=== PATIENT | male | born 1965 | race Caucasian/White ===

== ENCOUNTER 2020-05-16 16:09 | Inpatient (IN) | payer MEDICARE, MEDICAID, SELFPAY ==
[2020-05-16 16:13] VITALS: BP 142/87; PULSE 81; RESP 18; TEMP 36.5; O2SAT 97
--- NOTE | 2020-05-16 16:17 | XR_ITS ---
WS: [id number] Portable AP upright chest, 05/16/2020 Clinical Data: dyspnea/cough Comparison: Portable chest, 09/19/2018. Findings: No nodules, masses or effusions are seen. The heart is normal. The pulmonary vascularity is not increased. No pneumonia or pneumothorax is seen. There are increased interstitial markings espec ially in the upper lobes which are unchanged. The diaphragms are flattened. The aortic arch and desce nding aorta are tortuous. XR/XR chest 1V portable [id number] Impression: Hyperinflation and atherosclerosis.
[2020-05-16 17:01] LABS: Add Urine Microscopic? YES; Amphetamines Screen Urine Positive (Negative); Barbiturates Screen Urine Negative (Negative); Benzodiazepines Screen Urine Negative (Negative); Bilirubin Urine 1+ (NEGATIVE); Blood Urine 3+ (Negative); Cocaine Screen Urine Negative (Negative); Glucose Urine UA Trace (Normal); Ketones Urine Negative (Negative); Leukocyte Esterase Urine Negative (Negative); Nitrate Urine Negative (Negative); Opiate Screen Urine Negative (Negative); PCP Screen Urine Negative (Negative); Protein Urine Neg (Negative); THC Screen Urine Negative (Negative); Urine Appearance Clear (CLEAR); Urine Color Yellow (Yellow); Urobilinogen Urine 1 mg/dL (Negative); pH Urine 5 (5-7)
[2020-05-16 17:03] LABS: Bacteria Urine 3+; Mucus Urine TRACE; RBC Urine 50-80 /hpf (0-2); Squamous Epithelial Cell Urine 0-4 (0-5); WBC Urine 0-4 /hpf (0-5)
[2020-05-16 17:04] LABS: Add Urine Culture? Yes
--- NOTE | 2020-05-16 17:28 | W.ED.PSYCH ---
Documented by User: Anthony Laura DO 05/21/20 06:39 HPI - Psych General: Chief Complaint: Psychiatric Symptoms Stated Complaint: SI Time Seen by Provider: 05/16/20 16:10 History of Present Illness: HPI Narrative: 54-year-old male presents to the emergency room with complaints of suicidal ideation is been thinking of harming himself for the last week he is still thinking of harming himself would go home and take a large number of pills for an intentional overdose. He has been admitted to the psychiatric unit in the past. While is interviewing the patient he is noted to have a cough and I asked somebody states a low-grade fever the cough for the last several weeks if not a month. He has not previously been tested for COVID. He has a known history of COPD and is not particularly compliant with his treatment regiment. Review of Systems Const: Denies: fever(s), chills, body aches, change in appetite, fatigue or malaise ENMT: Denies: throat pain, ear or mastoid pain, nasal discharge or nasal congestion Card: Denies: chest pain, edema, dyspnea on exertion or orthopnea Resp: Reports: dyspnea and non-productive cough; Denies: productive cough GI: Denies: abdominal pain, nausea, vomiting, hematemesis, coffee ground emesis, diarrhea, constipation, bloating, hematochezia or melena : Denies: flank pain, dysuria, urinary frequency or urinary urgency Skin/Breast: Denies: rash or pruritus Physical Exam Const: COMMON NORMALS: no acute distress GENERAL APPEARANCE: cooperative and comfortable ORIENTATION/CONSCIOUSNESS: Yes awake, Yes oriented to person, Yes oriented to place and Yes oriented to time HENMT: COMMON NORMALS: normocephalic, atraumatic and hearing grossly normal bilaterally HEAD & SCALP: normocephalic and atraumatic Eye: COMMON NORMALS: Equal, round and reactive pupils present, EOMs intact bilaterally, conjunctivae normal and no scleral icterus CONJUNCTIVA: Yes conjunctivae normal PUPIL: Yes Equal, round and reactive pupils present Neck/C-Spine: COMMON NORMALS: full ROM, no lymphadenopathy, supple and no JVD Lymph: LYMPHATIC: no lymphadenopathy noted and no lymphedema noted Resp: COMMON NORMALS: normal respiratory effort, No retractions, No use of accessory muscles and clear to auscultation bilaterally AUSCULTATION: clear to auscultation bilaterally Cardio: COMMON NORMALS: no JVD, regular rate, regular rhythm and No murmurs present (Cardio) RATE: regular rate RHYTHM: regular rhythm GI: COMMON NORMALS: Soft to palpation and No hepatosplenomegaly present AUSCULTATION: Yes normoactive bowel sounds PALPATION: Yes Soft to palpation, No Tenderness to palpation present (GI), No Guarding due to palpation present (GI) and Yes No hepatosplenomegaly present Extremity: COMMON NORMALS: normal to inspection, capillary refill normal, no clubbing, cyanosis or edema, no calf tenderness and no pedal edema Neuro: SENSORIUM/ORIENTATION: Yes oriented to person, Yes oriented to place and Yes oriented to time Skin: COMMON NORMALS: no rashes or lesions noted GENERAL SKIN EXAM: no rashes or lesions noted MDM - Psych MDM Narrative: Medical decision making narrative: Screen for COVID in the emergency room using a rapid antigen test since he is currently symptomatic. Patient is will be 96 for suicidal ideation other medical clearance labs have been done. Care transferred to Dr. Garduno at change of shift Lab Data: Labs: Lab Results 05/16/20 05/16/20 05/16/20 Range/Units 16:34 16:34 17:26 WBC 7.8 (4.0-10.0) 10^3/ uL RBC 4.66 (4.1-5.3) 10^6/u L Hgb 14.0 (11.7-16.6) g/dL Hct 42.7 (42.0-52.0) % MCV 91.6 (80-94) fL MCH 30.0 (28.0-34.0) pg MCHC 32.8 (30.0-36.0) g/dL RDW 13.2 (12.1-15.1) % Plt Count 194 (130-400) 10^3/c mm MPV 10.2 (7.4-10.4) fL Neut % (Auto) 52.5 % Lymph % (Auto) 32.0 % Franklin % (Auto) 12.5 % Eos % (Auto) 1.8 % Baso % (Auto) 0.6 % Neut # (Auto) 4.07 (1.8-7.7) 10^3/u L Lymph # (Auto) 2.5 (0.8-4.8) 10^3/u L Franklin # (Auto) 1.0 H (0.2-0.9) 10^3/u L Eos # (Auto) 0.1 (0.0-0.8) 10^3/u L Baso # (Auto) 0.1 (0.0-0.1) 10^3/u L Nucleated RBC % (a uto) 0 % Nucleated RBCs # 0.0 /100WBC Sodium (136-145) mmol/L Potassium (3.5-5.1) mmol/L Chloride (98-107) mmol/L Carbon Dioxide (22-29) mmol/L Anion Gap (5-19) BUN (6-20) mg/dL Creatinine (0.7-1.2) mg/dL GFR Calculation (90-130) mL/min Glucose (65-115) mg/dL Calculated Osmolal ity (285-295) mOsm/k g Calcium (8.5-10.5) mg/dL Total Bilirubin (0.15-1.2) mg/dL AST (0-40) U/L ALT (0-41) U/L Alkaline Phosphata se (40-130) IU/L Total Protein (6.6-8.7) g/dL Albumin (3.5-5.2) g/dL Globulin (1.3-4.6) g/dL Urine Color Yellow (Yellow) Urine Appearance Clear (CLEAR) Urine pH 5 (5-7) Ur Specific Gravit y 1.020 (1.005-1.030) Urine Protein Neg (Negative) Urine Glucose (UA) Trace H (Normal) Urine Ketones Negative (Negative) Urine Blood 3+ H (Negative) Urine Nitrate Negative (Negative) Urine Bilirubin 1+ H (NEGATIVE) Urine Urobilinogen 1 H (Negative) mg/dL Ur Leukocyte Merry ase Negative (Negative) Urine RBC 50-80 H (0-2) /hpf Urine WBC 0-4 H (0-5) /hpf Ur Squamous Epith Cells 0-4 H (0-5) Amorphous Sediment Not Reportable Urine Bacteria 3+ H (NONE) Urine Mucus Trace Salicylates (3-10) mg/dL Urine Opiates Scre en Negative (Negative) ng/mL Acetaminophen (10-30) ug/mL Ur Barbiturates Sc reen Negative (Negative) ng/mL Ur Phencyclidine S crn Negative (Negative) ng/mL Ur Amphetamines Sc reen Positive H (Negative) ng/mL U Benzodiazepines Scrn Negative (Negative) ng/mL Urine Cocaine Scre en Negative (Negative) ng/mL U Marijuana (THC) Screen Negative (Negative) ng/mL Ethyl Alcohol (0-10) mg/dL SARS-CoV-2 Ag (Rap id) (Negative) 05/16/20 05/16/20 Range/Units 17:26 18:00 WBC (4.0-10.0) 10^3/ uL RBC (4.1-5.3) 10^6/u L Hgb (11.7-16.6) g/dL Hct (42.0-52.0) % MCV (80-94) fL MCH (28.0-34.0) pg MCHC (30.0-36.0) g/dL RDW (12.1-15.1) % Plt Count (130-400) 10^3/c mm MPV (7.4-10.4) fL Neut % (Auto) % Lymph % (Auto) % Franklin % (Auto) % Eos % (Auto) % Baso % (Auto) % Neut # (Auto) (1.8-7.7) 10^3/u L Lymph # (Auto) (0.8-4.8) 10^3/u L Franklin # (Auto) (0.2-0.9) 10^3/u L Eos # (Auto) (0.0-0.8) 10^3/u L Baso # (Auto) (0.0-0.1) 10^3/u L Nucleated RBC % (a uto) % Nucleated RBCs # /100WBC Sodium 136 (136-145) mmol/L Potassium 3.9 (3.5-5.1) mmol/L Chloride 105 (98-107) mmol/L Carbon Dioxide 26 (22-29) mmol/L Anion Gap 8.9 (5-19) BUN 23 H (6-20) mg/dL Creatinine 0.5 L (0.7-1.2) mg/dL GFR Calculation 172.6 H (90-130) mL/min Glucose 110 (65-115) mg/dL Calculated Osmolal ity 279 L (285-295) mOsm/k g Calcium 8.5 (8.5-10.5) mg/dL Total Bilirubin 0.3 (0.15-1.2) mg/dL AST 74 H (0-40) U/L ALT 124 H (0-41) U/L Alkaline Phosphata se 71 (40-130) IU/L Total Protein 6.5 L (6.6-8.7) g/dL Albumin 3.6 (3.5-5.2) g/dL Globulin 2.9 (1.3-4.6) g/dL Urine Color (Yellow) Urine Appearance (CLEAR) Urine pH (5-7) Ur Specific Gravit y (1.005-1.030) Urine Protein (Negative) Urine Glucose (UA) (Normal) Urine Ketones (Negative) Urine Blood (Negative) Urine Nitrate (Negative) Urine Bilirubin (NEGATIVE) Urine Urobilinogen (Negative) mg/dL Ur Leukocyte Merry ase (Negative) Urine RBC (0-2) /hpf Urine WBC (0-5) /hpf Ur Squamous Epith Cells (0-5) Amorphous Sediment Urine Bacteria (NONE) Urine Mucus Salicylates < 0.3 L (3-10) mg/dL Urine Opiates Scre en (Negative) ng/mL Acetaminophen < 5.0 L (10-30) ug/mL Ur Barbiturates Sc reen (Negative) ng/mL Ur Phencyclidine S crn (Negative) ng/mL Ur Amphetamines Sc reen (Negative) ng/mL U Benzodiazepines Scrn (Negative) ng/mL Urine Cocaine Scre en (Negative) ng/mL U Marijuana (THC) Screen (Negative) ng/mL Ethyl Alcohol < 10 (0-10) mg/dL SARS-CoV-2 Ag (Rap id) Negative (Negative) Discharge Plan Discharge Patient Disposition: Admitted As Inpatient Admit Provider: Joel Bernal Clinical Impression: Suicidal ideation, Substance abuse Condition: Stable Referrals: [facility] [Other] (be sure to call as soon as you can in order to get appointment for follow-up. Request outpatient mental health services. ) Discharge Date/Time: 05/16/20 21:13 Coding Level of Care Code ED Cdl Driver for [facility] Fwd Exam Comprehensive Documented by User: Niels Roa, DO 05/16/20 23:30 HPI - Psych General: Chief Complaint: Psychiatric Symptoms Stated Complaint: SI Time Seen by Provider: 05/16/20 16:10 MDM - Psych MDM Narrative: Medical decision making narrative: 54-year-old male checked out to me by Dr. Laura at shift change. He is breathing room air at this point. His serum labs are benign. His rapid COVID is negative. His urine showed significant hematuria. Because of this, CT was ordered stone protocol and shows a nonobstructing 2 mm distal ureter stone with no complication. This is the likely source of his hematuria. Results explained to psychiatry. They are willing to take as an admission. Lab Data: Labs: Lab Results 05/16/20 05/16/20 05/16/20 Range/Units 16:34 16:34 17:26 WBC 7.8 (4.0-10.0) 10^3/ uL RBC 4.66 (4.1-5.3) 10^6/u L Hgb 14.0 (11.7-16.6) g/dL Hct 42.7 (42.0-52.0) % MCV 91.6 (80-94) fL MCH 30.0 (28.0-34.0) pg MCHC 32.8 (30.0-36.0) g/dL RDW 13.2 (12.1-15.1) % Plt Count 194 (130-400) 10^3/c mm MPV 10.2 (7.4-10.4) fL Neut % (Auto) 52.5 % Lymph % (Auto) 32.0 % Franklin % (Auto) 12.5 % Eos % (Auto) 1.8 % Baso % (Auto) 0.6 % Neut # (Auto) 4.07 (1.8-7.7) 10^3/u L Lymph # (Auto) 2.5 (0.8-4.8) 10^3/u L Franklin # (Auto) 1.0 H (0.2-0.9) 10^3/u L Eos # (Auto) 0.1 (0.0-0.8) 10^3/u L Baso # (Auto) 0.1 (0.0-0.1) 10^3/u L Nucleated RBC % (a uto) 0 % Nucleated RBCs # 0.0 /100WBC Sodium (136-145) mmol/L Potassium (3.5-5.1) mmol/L Chloride (98-107) mmol/L Carbon Dioxide (22-29) mmol/L Anion Gap (5-19) BUN (6-20) mg/dL Creatinine (0.7-1.2) mg/dL GFR Calculation (90-130) mL/min Glucose (65-115) mg/dL Calculated Osmolal ity (285-295) mOsm/k g Calcium (8.5-10.5) mg/dL Total Bilirubin (0.15-1.2) mg/dL AST (0-40) U/L ALT (0-41) U/L Alkaline Phosphata se (40-130) IU/L Total Protein (6.6-8.7) g/dL Albumin (3.5-5.2) g/dL Globulin (1.3-4.6) g/dL Urine Color Yellow (Yellow) Urine Appearance Clear (CLEAR) Urine pH 5 (5-7) Ur Specific Gravit y 1.020 (1.005-1.030) Urine Protein Neg (Negative) Urine Glucose (UA) Trace H (Normal) Urine Ketones Negative (Negative) Urine Blood 3+ H (Negative) Urine Nitrate Negative (Negative) Urine Bilirubin 1+ H (NEGATIVE) Urine Urobilinogen 1 H (Negative) mg/dL Ur Leukocyte Merry ase Negative (Negative) Urine RBC 50-80 H (0-2) /hpf Urine WBC 0-4 H (0-5) /hpf Ur Squamous Epith Cells 0-4 H (0-5) Amorphous Sediment Not Reportable Urine Bacteria 3+ H (NONE) Urine Mucus Trace Salicylates (3-10) mg/dL Urine Opiates Scre en Negative (Negative) ng/mL Acetaminophen (10-30) ug/mL Ur Barbiturates Sc reen Negative (Negative) ng/mL Ur Phencyclidine S crn Negative (Negative) ng/mL Ur Amphetamines Sc reen Positive H (Negative) ng/mL U Benzodiazepines Scrn Negative (Negative) ng/mL Urine Cocaine Scre en Negative (Negative) ng/mL U Marijuana (THC) Screen Negative (Negative) ng/mL Ethyl Alcohol (0-10) mg/dL SARS-CoV-2 Ag (Rap id) (Negative) 05/16/20 05/16/20 Range/Units 17:26 18:00 WBC (4.0-10.0) 10^3/ uL RBC (4.1-5.3) 10^6/u L Hgb (11.7-16.6) g/dL Hct (42.0-52.0) % MCV (80-94) fL MCH (28.0-34.0) pg MCHC (30.0-36.0) g/dL RDW (12.1-15.1) % Plt Count (130-400) 10^3/c mm MPV (7.4-10.4) fL Neut % (Auto) % Lymph % (Auto) % Franklin % (Auto) % Eos % (Auto) % Baso % (Auto) % Neut # (Auto) (1.8-7.7) 10^3/u L Lymph # (Auto) (0.8-4.8) 10^3/u L Franklin # (Auto) (0.2-0.9) 10^3/u L Eos # (Auto) (0.0-0.8) 10^3/u L Baso # (Auto) (0.0-0.1) 10^3/u L Nucleated RBC % (a uto) % Nucleated RBCs # /100WBC Sodium 136 (136-145) mmol/L Potassium 3.9 (3.5-5.1) mmol/L Chloride 105 (98-107) mmol/L Carbon Dioxide 26 (22-29) mmol/L Anion Gap 8.9 (5-19) BUN 23 H (6-20) mg/dL Creatinine 0.5 L (0.7-1.2) mg/dL GFR Calculation 172.6 H (90-130) mL/min Glucose 110 (65-115) mg/dL Calculated Osmolal ity 279 L (285-295) mOsm/k g Calcium 8.5 (8.5-10.5) mg/dL Total Bilirubin 0.3 (0.15-1.2) mg/dL AST 74 H (0-40) U/L ALT 124 H (0-41) U/L Alkaline Phosphata se 71 (40-130) IU/L Total Protein 6.5 L (6.6-8.7) g/dL Albumin 3.6 (3.5-5.2) g/dL Globulin 2.9 (1.3-4.6) g/dL Urine Color (Yellow) Urine Appearance (CLEAR) Urine pH (5-7) Ur Specific Gravit y (1.005-1.030) Urine Protein (Negative) Urine Glucose (UA) (Normal) Urine Ketones (Negative) Urine Blood (Negative) Urine Nitrate (Negative) Urine Bilirubin (NEGATIVE) Urine Urobilinogen (Negative) mg/dL Ur Leukocyte Merry ase (Negative) Urine RBC (0-2) /hpf Urine WBC (0-5) /hpf Ur Squamous Epith Cells (0-5) Amorphous Sediment Urine Bacteria (NONE) Urine Mucus Salicylates < 0.3 L (3-10) mg/dL Urine Opiates Scre en (Negative) ng/mL Acetaminophen < 5.0 L (10-30) ug/mL Ur Barbiturates Sc reen (Negative) ng/mL Ur Phencyclidine S crn (Negative) ng/mL Ur Amphetamines Sc reen (Negative) ng/mL U Benzodiazepines Scrn (Negative) ng/mL Urine Cocaine Scre en (Negative) ng/mL U Marijuana (THC) Screen (Negative) ng/mL Ethyl Alcohol < 10 (0-10) mg/dL SARS-CoV-2 Ag (Rap id) Negative (Negative) Discharge Plan Discharge Patient Disposition: Admitted As Inpatient Admit Provider: Joel Bernal Clinical Impression: Suicidal ideation, Substance abuse Condition: Stable Referrals: [facility] [Other] (be sure to call as soon as you can in order to get appointment for follow-up. Request outpatient mental health services. ) Discharge Date/Time: 05/16/20 21:13 Coding Level of Care Code ED Cdl Driver for [facility] Fwd Exam Comprehensive
[2020-05-16 17:33] LABS: Basophils # 0.1 10^3/uL (0.0-0.1); Basophils % 0.6 %; Eosinophils # 0.1 10^3/uL (0.0-0.8); Eosinophils % 1.8 %; Hematocrit 42.7 % (42.0-52.0); Lymphocytes # 2.5 10^3/uL (0.8-4.8); Mean Corpuscular HGB Conc 32.8 g/dL (30.0-36.0); Mean Corpuscular Volume 91.6 fL (80-94); Mean Platelet Volume 10.2 fL (7.4-10.4); Monocytes % 12.5 %; Neutrophils # 4.07 10^3/uL (1.8-7.7); Neutrophils % 52.5 %; Nucleated Red Blood Cells % 0 %; Platelet Count 194 10^3/cmm (130-400); Red Blood Count 4.66 10^6/uL (4.1-5.3); Red Cell Distribution Width 13.2 % (12.1-15.1); White Blood Count 7.8 10^3/uL (4.0-10.0)
[2020-05-16 17:50] LABS: Alanine Aminotransferase 124 U/L (0-41); Albumin Level 3.6 g/dL (3.5-5.2); Alkaline Phosphatase 71 IU/L (40-130); Anion Gap 8.9 (5-19); Aspartate Amino Transferase 74 U/L (0-40); Blood Urea Nitrogen 23 mg/dL (6-20); Calcium 8.5 mg/dL (8.5-10.5); Carbon Dioxide 26 mmol/L (22-29); Chloride 105 mmol/L (98-107); Globulin 2.9 g/dL (1.3-4.6); Glomerular Filtration Rate 172.6 mL/min (90-130); Glucose 110 mg/dL (65-115); Osmolality Calculated 279 mOsm/kg (285-295); Potassium 3.9 mmol/L (3.5-5.1); Sodium 136 mmol/L (136-145); Total Bilirubin 0.3 mg/dL (0.15-1.2); Total Protein 6.5 g/dL (6.6-8.7)
--- NOTE | 2020-05-16 17:56 | CTR_ITS ---
PROCEDURE INFORMATION: Exam: CT Abdomen And Pelvis Without Contrast Exam date and time: 05/16/2020 6:20 PM Age: 54 years old Clinical indication: Other: Hematuria; Additional info: Flank pain TECHNIQUE: Imaging protocol: Computed tomography of the abdomen and pelvis without contrast. Radiation optimization: All CT scans at this facility use at least one of these dose optimization techniques: automated exposure control; mA and/or kV adjustment per patient size (includes targeted exams where dose is matched to clinical indication); or iterative reconstruction. COMPARISON: No relevant prior studies available. RADIATION DOSE METRICS: Total DLP (mGy-cm): 686.55 FINDINGS: Lungs: Limited assessment of the lung bases reveal COPD/chronic bronchitis. Liver: Unremarkable. No mass. Gallbladder and bile ducts: Normal. No calcified stones. No ductal dilation. Pancreas: Normal. No ductal dilation. Spleen: Normal. No splenomegaly. Adrenals: Normal. No mass. Kidneys and ureters: Examination reveals a distal left ureterolithiasis that measures under 2 mm without significant left hydronephrosis and hydroureter. Tiny focus of nonobstructing calyceal nephrolithiasis or remains inferior pole left kidney under 2 mm. Very tiny focus of nonobstructing calyceal nephrolithiasis superior pole right kidney under 2 mm. Stomach and bowel: Diverticulosis coli, primarily the sigmoid colon, without evidence for acute diverticulitis. Constipation. Nonobstructive bowel pattern. No visible adynamic or reactive ileus. Appendix: The appendix is visualized and appears noninflamed. Intraperitoneal space: Unremarkable. No free air. No significant fluid collection. Vasculature: The abdominal aorta is nonaneurysmal. Moderate arterial sclerotic disease. Lymph nodes: Unremarkable. No enlarged lymph nodes. Bladder: Unremarkable as visualized. Reproductive: Unremarkable as visualized. Bones/joints: No visible active or acute osseous pathology. Soft tissues: Unremarkable. CT/CT kidney stone [id number] IMPRESSION: 1. Examination reveals a distal left ureterolithiasis that measures under 2 mm without significant left hydronephrosis and hydroureter. 2. Bilateral nephrolithiasis. 3. Diverticulosis coli without evidence for acute diverticulitis. 4. Constipation. Radiation Dose CTDIVOL = (mGy): DLP = 686.55 (mGy-cm)
[2020-05-16 18:04] LABS: Acetaminophen < 5.0 ug/mL (10-30); Alcohol Level < 10 mg/dL (0-10); Salicylate < 0.3 mg/dL (3-10)
[2020-05-16 18:33] LABS: SARS Covid-2 Antigen Negative (Negative)
[2020-05-16 20:00] VITALS: BP 137/83; PULSE 75; RESP 16; O2SAT 97
--- NOTE | 2020-05-16 20:09 | PC.NURSE ---
vo obtained from Dr Roa to allow pt to eat. Sack lunch and sprite provided
[2020-05-16 21:06] VITALS: BP 133/85; PULSE 83; RESP 22; TEMP 36.9; O2SAT 93
[2020-05-16 21:13] VITALS: BP 137/83; PULSE 75; RESP 18; O2SAT 97; BMI 21.2
[2020-05-16 22:00] VITALS: BP 137/83; PULSE 75; RESP 18; TEMP 36.9; O2SAT 97
[2020-05-17] VITALS (10 sets, daily range): BP systolic 131–139; BP diastolic 74–90; PULSE 74–83; RESP 16–23; TEMP 36.6–36.9; O2SAT 95–98
[2020-05-17] MEDS: cloNIDine 0.1 mg Tablet PO ×3 (08:41→20:26)
--- NOTE | 2020-05-17 10:25 | PM.NHP ---
Providers/Chief Complaint Admitting Physician: Joel Bernal MD Chief Complaint: SI HPI NPU History of Present Illness Rajeev Mariee is a 54 year old male who contacted a social media specialist and [facility] and reported that several days ago, he took an entire bottle of Seroquel in a suicide attempt. He said that he wanted to get back on his medications but was unable to get to the hospital and [facility] without transportation by ambulance. On arrival, ER physician reported 54-year-old male presents to the emergency room with complaints of suicidal ideation is been thinking of harming himself for the last week he is still thinking of harming himself would go home and take a large number of pills for an intentional overdose. He has been admitted to the psychiatric unit in the past. While is interviewing the patient he is noted to have a cough and I asked somebody states a low-grade fever the cough for the last several weeks if not a month. He has not previously been tested for Covid. He has a known history of COPD and is not particularly compliant with his treatment regiment. On interview, he states that he wants to get back on his medication. He is depressed. He is primarily depressed because of his social circumstances. He is not particularly forthcoming though he is able to directly state his needs and interview. He would like to get back on the in Moss and Zoloft. He also wants to explore why he has lost 50 pounds in the past year. However that too may be due to a combination of his methamphetamine abuse and his living circumstances. His urine drug screen is positive again for methamphetamine. Fortunately it is negative for alcohol. Psychiatric history: The patient has 4 prior psychiatric admissions at this hospital. Remarkably, he has been absent since September 2018 when he was here for 7 days. At that time he was started on a combination of Zoloft and in Moss. It is unknown how long he was able to stay on those medications. The patient states that he has been off of them for quite some time because he does not have transportation to the doctor's office. He would not explain where he got the bottle of Seroquel as that was not prescribed for him through this facility. His diagnoses have uniformly been schizoaffective disorder complicated by methamphetamine and alcohol use. He was hospitalized in July 2016 for 5 days and was discharged on a combination of clonazepam, Depakote, Seroquel, and fluoxetine. He remained free of hospitalization for 18 months until January 2018 when his hospitalized for 3 days and again in April 2018 for 3 days. Finally on September 19, 2018 he was hospitalized for 7 days at which time he was started on the combination of Invega and Zoloft. He denies that he has received ongoing care and refuses to state how long it has been since he has taken medication for his mental illness. However he was able to engage a licensed practical nurse clinic nurse to assist him in getting transportation and an affidavit on his chart for potential admission to this unit. Social history: The patient was not forthcoming with regard to his current circumstances. He says he is living alone in a place that he rents. And has running water and a microwave. It does not have a stove or oven. Review of Systems Narrative: Review of Systems Constitutional: Complains of: Fatigue and 50 pound weight loss Eyes: Complains of: No eye symptoms ENT/Mouth: Complains of: No ENTM symptoms Cardiovascular: Complains of: No cardiac symptoms Respiratory: Complains of: No respiratory symptoms GI: Complains of: No GI symptoms Neuro: Complains of: No neuro symptoms Musculoskeletal: Complains of: No musculoskeletal symptoms Skin: Complains of: No skin symptoms Hematologic/Lymphatic: Complains of: No hematologic/lymphatic symptoms Endocrine: Complains of: No endocrine symptoms : Complains of: No symptoms Psych: Complains of: Depression, Suicide ideation Meds NPU Home Medications Medication Instructions Recorded Confirmed Last Taken Type albuterol sulfate 2 puff INHALATION 6XD 05/16/20 05/16/20 05/16/20 18:00 History albuterol sulfate 2.5 mg INHALATION Q6H PRN 05/16/20 05/16/20 05/16/20 History clonidine HCl 0.1 mg PO TID 05/16/20 05/16/20 05/16/20 History Allergies Allergy/AdvReac Type Severity Reaction Status Date / Time Penicillins Allergy Mild Unknown Verified 05/16/20 16:21 Mental Status Exam MSE Comments: Mental Status Exam: Patient is alert and interpersonally engaged. Eye contact is fixed. His gait is shuffling and slow. He is not believed to be a reliable informant as he provides no actual information other than that described above. His mentation seems to be somewhat slowed and confused which prevents him to provide significant information. Appearance: hygiene is fair; no gross neurological deficits., gait is unremarkable; AIMS=0 Speech: Speech is of slow rate and rhythm and difficult to understand Thought processes: Thought processes are idiosyncratic. Judgment is not adequate for safety. Psychotic processes: There is no indication of guarding or paranoia. There is no attention to the internal stimuli. Auditory and visual hallucinations are denied. Judgment: Insight is fair. Problem solving skills are not adequate for safety. Orientation: The patient is oriented to person, place and situation. He does not know the day or date Memory: Unable to formally test Attention: The patient is alert and interpersonally engaged. Language: Verbalizations are coherent. Fund of knowledge: Fund of knowledge is poor Affect/Mood: Affect is consistent with a depressed mood. pt denies suicidal ideation Affective range is flat Psychosis: perception unimpaired except through cognitive distortion; reality testing intact. Vitals/I&O/Wt Last Vital Signs Temp 98.5 F 05/17/20 06:00 Pulse 74 05/17/20 08:20 Resp 16 05/17/20 08:20 BP 131/84 05/17/20 08:41 Pulse Ox 96 05/17/20 08:20 Weight last 48 hrs Weight 63.503 kg Data NPU : 05/16/20 17:26 05/16/20 17:26 A&P Additional A&P Information Due to the psychiatric conditions and treatment listed in the Assessment and Plan - the patient requires continued hospitalization. Will provide a safe and therapeutic environment for patient.. Will continue inpatient treatment to allow for medication adjustment and monitoring. Will continue q15 min safety checks. Will continue restart his in Moss and Zoloft from his last hospitalization. He will be given double portions to boost his caloric intake. There is no indication of a reason for weight loss in his admission medications. We will continue to monitor this. Monitor patient's mood, sleep, appetite, and behavior closely. Encourage patient to participate in individual and group therapeutic sessions on the good. Estimated length of stay 5 days The expected benefits and potential side effects of patient's psychiatric medications were discussed with the patient. The patient understands and consents to treatment. CRITERIA FOR DISCHARGE: stable on medications and no longer an imminent threat to self or others Involuntary Hold Information 96 Hour Hold: 96 Hour Involuntary Admission: No Attestations NPU Medical Necessity Statement*: Patient will remain in the hospital another 3-5 nights for the completion of his 96-hour involuntary commitment. Coding Level of Care Code Acute Senior Architect/Design Manager for Mayela Brooks
[2020-05-17] MEDS: nicotine 21 mg Patch 1 PATCH TRANSDERMA (10:29)
[2020-05-17] MEDS: sertraline 50 mg Tablet 25 MG PO (11:33)
[2020-05-17] MEDS: paliperidone ER 3 mg Tablet PO (11:34)
[2020-05-17] MEDS: albuterol 8 gm MDI 2 PUFF INHALATION ×2 (12:40→19:56)
--- NOTE | 2020-05-17 17:20 | PC.NURSE ---
Patient NOC O2 Patient states he uses 3.5 L NC O2 at night as needed. Denies need tonight, will let staff know. States he does not want any one sitting with him.
[2020-05-17] MEDS: blistex lip oint 7 gm Tube 1 APPLIC TOPICAL (18:31)
[2020-05-17] MEDS: acetaminophen 325 mg Tablet 650 MG PO (19:27)
[2020-05-18] VITALS (10 sets, daily range): BP systolic 123–160; BP diastolic 79–102; PULSE 68–94; RESP 17–18; TEMP 36.3–36.6; O2SAT 94–97
[2020-05-18] MEDS: sertraline 50 mg Tablet 25 MG PO (08:21)
[2020-05-18] MEDS: cloNIDine 0.1 mg Tablet PO ×3 (08:21→21:15)
[2020-05-18] MEDS: paliperidone ER 3 mg Tablet PO (08:21)
--- NOTE | 2020-05-18 08:56 | PM.NPN ---
Subjective NPU Subjective: Interval history: Patient is profoundly dysphoric. He is sad, feeling suicidal and hopeless. He has, however, a recollection of treatment that was helpful to him. Depakote stabilized his mood, whereas lithium made him feel weird. He is on Invega, which made him feel worse. He remembers that Zyprexa had no ill effects on him and calmed him down. He says that the Zoloft, not yet properly titrated, never helped him before. However, he does recall that fluoxetine worked for him. In the meantime, upon review of the ER physician's record, it is evident that he has a 2 mm nonobstructing stone in the distal ureter, not specifically mentioned which side, which explains his hematuria and, not surprisingly, has 3+ bacteriuria. I have consulted with the hospital pharmacist this morning and we agree there is an indication for Bactrim DS, which I have initiated. Medications: Reviewed: Yes Medication Review Details: Current Medications Acetaminophen (Tylenol) 650 mg PO Q4H PRN PRN Reason: MILD PAIN Last Admin: 05/17/20 19:27 Dose: 650 mg Documented by: Albuterol Sulfate (Albuterol) 2.5 mg INHALATION Q6H PRN PRN Reason: Wheezing Last Admin: 05/17/20 17:01 Dose: 2.5 mg Documented by: Albuterol Sulfate (Ventolin) 2 puff INHALATION 6XD [facility] Last Admin: 05/17/20 19:56 Dose: 2 puff Documented by: Benztropine Mesylate (Cogentin) 1 mg PO BID PRN PRN Reason: Mild Extrapyramidal symptoms Camphor/Menthol/Phenol (Blistex) 1 applic TOPICAL Q1H PRN PRN Reason: DRYNESS Last Admin: 05/17/20 18:31 Dose: 1 applic Documented by: Clonidine HCl (Catapres) 0.1 mg PO TID [facility] Last Admin: 05/18/20 08:21 Dose: 0.1 mg Documented by: Diphenhydramine HCl (Benadryl) 50 mg IM ONCE PRN PRN Reason: Severe Extrapyramidal Symptoms Diphenhydramine HCl (Benadryl) 50 mg IM Q4H PRN PRN Reason: Severe Aggression Divalproex Sodium (Depakote Er) 500 mg PO BEDTIME [facility] Fluoxetine HCl (Prozac) 10 mg PO DAILY [facility] Haloperidol (Haldol) 5 mg PO Q4H PRN PRN Reason: AGITATION Haloperidol Lactate (Haldol Inj) 5 mg IM Q4H PRN PRN Reason: Severe Aggression Hydroxyzine Pamoate (Vistaril) 50 mg PO Q6H PRN PRN Reason: ANXIETY Loperamide HCl (Imodium Capsule) 2 mg PO Q6H PRN PRN Reason: DIARRHEA Lorazepam (Ativan) 2 mg IM Q4H PRN PRN Reason: Severe Aggression Nicotine (Nicoderm 21 Mg Patch) 1 patch TRANSDERMA DAILY PRN PRN Reason: NICOTINE WITHDRAWAL Last Admin: 05/17/20 10:29 Dose: 1 patch Documented by: Nicotine Polacrilex (Nicorette) 2 mg BUCCAL Q2H PRN PRN Reason: NICOTINE WITHDRAWAL Olanzapine (Zyprexa Zydis) 5 mg PO Q4H PRN PRN Reason: Agitation/Psychosis Olanzapine (Zyprexa Zydis) 5 mg PO BEDTIME [facility] Ondansetron HCl (Zofran) 4 mg PO Q6H PRN PRN Reason: NAUSEA AND VOMITING Trazodone HCl (Desyrel) 50 mg PO BEDTIME PRN PRN Reason: SLEEP Trimethoprim/Sulfamethoxazole (Bactrim Ds) 1 tab PO BID [facility]; Protocol Stop: 05/31/20 08:59 Mental Status Exam MSE Comments: Patient is alert and interpersonally engaged. Eye contact is fixed. His gait is shuffling and slow. He is not believed to be a reliable informant as he provides no actual information other than that described above. His mentation seems to be somewhat slowed and confused which prevents him from providing significant information. Mood: Profoundly sad and dysphoric; affect is flat to tearful. Appearance: hygiene is fair; no gross neurological deficits., gait is unremarkable; AIMS=0 Speech: Speech is of slow rate and rhythm and difficult to understand Thought processes: Thought processes are idiosyncratic. Judgment is not adequate for safety. Psychotic processes: There is no indication of guarding or paranoia. There is no attention to the internal stimuli. Auditory and visual hallucinations are denied. Judgment: Insight is fair. Problem solving skills are not adequate for safety. Orientation: The patient is oriented to person, place and situation. Memory: Unable to formally test Attention: The patient is alert and interpersonally engaged. Language: Verbalizations are coherent. Fund of knowledge: Fund of knowledge is poor Pt denies suicidal ideation Affective range is flat Psychosis: perception unimpaired except through cognitive distortion; reality testing intact. Vitals/I&O/Wt Last Vital Signs Temp 97.9 F 05/18/20 06:00 Pulse 68 05/18/20 06:00 Resp 17 05/18/20 06:00 BP 149/98 05/18/20 08:21 Pulse Ox 97 05/18/20 06:00 Weight last 48 hrs Weight 152 lb 6.4 oz Weight 140 lb Data NPU : 05/16/20 17:26 05/16/20 17:26 A&P Assessment and plan (1) Suicidal ideation: Patient will I have organized millieu, adjustment of pharmacotherapy and treatment of his bacteriuria. Referral to recovery as well as to continuing care must be effectuated Status: Acute (2) Substance abuse: Referral to recovery program Status: Acute (3) Bipolar 1 disorder, depressed, moderate: Medication adjustment as above with monitoring. Status: Acute Involuntary Hold Information 96 Hour Hold: 96 Hour Involuntary Admission: No Attestations NPU Medical Necessity Statement*: The patient is just in the beginning of the intervention. I anticipate 5-7 midnights additional hospitalization. Time Spent in Patient Care: Greater than 35 minutes (>than 50% of time spent in counselling and/or direct pt care on unit). What with review of records, discussion of the patient's past history and current difficulties, consultation with hospital pharmacist regarding hematuria and bacteriuria, I spent some 55 minutes on this case Coding Level of Care Code Acute Ecommerce Project Manager for [facility] Cecilia Diagnoses Suicidal ideation R45.851 Substance abuse F19.10 Bipolar 1 disorder, depressed, moderate F31.32
[2020-05-18] MEDS: fluoxetine 10 mg Capsule PO (09:01)
[2020-05-18] MEDS: sulfamethoxazole-trimeth DS 160-800 mg Tablet 1 TAB PO ×2 (09:01→16:58)
[2020-05-18] MEDS: albuterol 8 gm MDI 2 PUFF INHALATION ×3 (09:23→16:54)
[2020-05-18] MEDS: acetaminophen 325 mg Tablet 650 MG PO (11:24)
[2020-05-18] MEDS: trazodone 50 mg Tablet PO (21:15)
[2020-05-18] MEDS: OLANZapine 5 mg ODT PO (21:15)
[2020-05-18] MEDS: divalproex ER 500 mg Tablet (24H) PO (21:15)
[2020-05-19] VITALS (7 sets, daily range): BP systolic 106–149; BP diastolic 72–102; PULSE 82–88; RESP 12–18; TEMP 36.4–36.7; O2SAT 94–98
--- NOTE | 2020-05-19 11:13 | PC.SOCIAL ---
important message for medicare provided
[2020-05-19] MEDS: nicotine 21 mg Patch 1 PATCH TRANSDERMA (11:36)
[2020-05-19] MEDS: cloNIDine 0.1 mg Tablet PO ×3 (11:36→20:24)
[2020-05-19] MEDS: sulfamethoxazole-trimeth DS 160-800 mg Tablet 1 TAB PO ×2 (11:37→17:13)
[2020-05-19] MEDS: fluoxetine 10 mg Capsule PO (11:37)
--- NOTE | 2020-05-19 13:52 | PM.NPN ---
Subjective NPU Subjective: Interval history: Patient still feels despondent. He is tolerating the fluoxetine and I am pushing the dose to 20 mg/day. In the meantime he believes he can keep himself safe in our milieu. Medications: Reviewed: Yes Medication Review Details: Current Medications Acetaminophen (Tylenol) 650 mg PO Q4H PRN PRN Reason: MILD PAIN Last Admin: 05/18/20 11:24 Dose: 650 mg Documented by: Albuterol Sulfate (Albuterol) 2.5 mg INHALATION Q6H PRN PRN Reason: Wheezing Last Admin: 05/17/20 17:01 Dose: 2.5 mg Documented by: Albuterol Sulfate (Ventolin) 2 puff INHALATION Q4H.RESPIRATORY PRN PRN Reason: SHORTNESS OF BREATH Benztropine Mesylate (Cogentin) 1 mg PO BID PRN PRN Reason: Mild Extrapyramidal symptoms Camphor/Menthol/Phenol (Blistex) 1 applic TOPICAL Q1H PRN PRN Reason: DRYNESS Last Admin: 05/17/20 18:31 Dose: 1 applic Documented by: Clonidine HCl (Catapres) 0.1 mg PO TID [facility] Last Admin: 05/19/20 13:50 Dose: 0.1 mg Documented by: Diphenhydramine HCl (Benadryl) 50 mg IM ONCE PRN PRN Reason: Severe Extrapyramidal Symptoms Diphenhydramine HCl (Benadryl) 50 mg IM Q4H PRN PRN Reason: Severe Aggression Divalproex Sodium (Depakote Er) 500 mg PO BEDTIME [facility] Last Admin: 05/18/20 21:15 Dose: 500 mg Documented by: Fluoxetine HCl (Prozac) 20 mg PO DAILY [facility] Haloperidol (Haldol) 5 mg PO Q4H PRN PRN Reason: AGITATION Haloperidol Lactate (Haldol Inj) 5 mg IM Q4H PRN PRN Reason: Severe Aggression Hydroxyzine Pamoate (Vistaril) 50 mg PO Q6H PRN PRN Reason: ANXIETY Loperamide HCl (Imodium Capsule) 2 mg PO Q6H PRN PRN Reason: DIARRHEA Lorazepam (Ativan) 2 mg IM Q4H PRN PRN Reason: Severe Aggression Nicotine (Nicoderm 21 Mg Patch) 1 patch TRANSDERMA DAILY PRN PRN Reason: NICOTINE WITHDRAWAL Last Admin: 05/19/20 11:36 Dose: 1 patch Documented by: Nicotine Polacrilex (Nicorette) 2 mg BUCCAL Q2H PRN PRN Reason: NICOTINE WITHDRAWAL Olanzapine (Zyprexa Zydis) 5 mg PO Q4H PRN PRN Reason: Agitation/Psychosis Olanzapine (Zyprexa Zydis) 5 mg PO BEDTIME [facility] Last Admin: 05/18/20 21:15 Dose: 5 mg Documented by: Ondansetron HCl (Zofran) 4 mg PO Q6H PRN PRN Reason: NAUSEA AND VOMITING Trazodone HCl (Desyrel) 50 mg PO BEDTIME PRN PRN Reason: SLEEP Last Admin: 05/18/20 21:15 Dose: 50 mg Documented by: Trimethoprim/Sulfamethoxazole (Bactrim Ds) 1 tab PO BID [facility]; Protocol Stop: 05/31/20 08:59 Last Admin: 05/19/20 11:37 Dose: 1 tab Documented by: Mental Status Exam MSE Comments: Patient is alert and interpersonally engaged. Eye contact is fixed. His gait is shuffling and slow. His mentation is clearer now mood: Remains profoundly sad and dysphoric; affect is flat but not tearful. Appearance: hygiene is fair; no gross neurological deficits. Gait is unremarkable; AIMS=0 Speech: Speech is of slow rate and rhythm but easier to understand. There is no dysarthria, aprosody or pressure. Thought processes: Thought processes are idiosyncratic. Judgment is not adequate for safety. Psychotic processes: There is no indication of guarding or paranoia. There is no attention to the internal stimuli. Auditory and visual hallucinations are denied. Judgment: Insight is fair. Problem solving skills are not adequate for safety. Orientation: The patient is oriented to person, place and situation. Memory: Unable to formally test Attention: The patient is alert and interpersonally engaged. Language: Verbalizations are coherent. Fund of knowledge: Fund of knowledge is poor Pt denies suicidal ideation. Psychosis: perception unimpaired except through cognitive distortion; reality testing intact. 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 Status: Acute (2) Suicidal ideation: Close monitoring, pharmacotherapy and supportive psychotherapy Status: Acute (3) Substance abuse: Patient education. Referral to outpatient rehab Status: Acute Involuntary Hold Information 96 Hour Hold: 96 Hour Involuntary Admission: No Attestations NPU Medical Necessity Statement*: I anticipate 5-7 midnights additional hospitalization. Time Spent in Patient Care: Greater than 35 minutes (>than 50% of time spent in counselling and/or direct pt care on unit). Coding Level of Care Code Acute Gasoline Attendant for Mayela Fwd Diagnoses Bipolar 1 disorder, depressed, moderate F31.32 Suicidal ideation R45.851 Substance abuse F19.10
[2020-05-19] MEDS: albuterol 8 gm MDI 2 PUFF INHALATION (14:08)
[2020-05-19] MEDS: divalproex ER 500 mg Tablet (24H) PO (20:23)
[2020-05-19] MEDS: OLANZapine 5 mg ODT PO (20:24)
[2020-05-20] VITALS (8 sets, daily range): BP systolic 105–141; BP diastolic 72–93; PULSE 69–109; RESP 18–19; TEMP 36.6–37.4; O2SAT 93–96
[2020-05-20] MEDS: albuterol 8 gm MDI 2 PUFF INHALATION (09:33)
[2020-05-20] MEDS: fluoxetine 20 mg Capsule PO (09:45)
[2020-05-20] MEDS: sulfamethoxazole-trimeth DS 160-800 mg Tablet 1 TAB PO ×2 (09:45→17:32)
[2020-05-20] MEDS: cloNIDine 0.1 mg Tablet PO ×3 (09:45→22:04)
--- NOTE | 2020-05-20 20:46 | P.PN_ITS ---
Subjective NPU Subjective: Interval history: The patient states he has not changed and is still quite depressed. We reviewed pharmacotherapy and he agrees to a daily dose increase of fluoxetine to 40 mg p.o. daily. Medications: Reviewed: Yes Medication Review Details: Current Medications Acetaminophen (Tylenol) 650 mg PO Q4H PRN PRN Reason: MILD PAIN Last Admin: 05/18/20 11:24 Dose: 650 mg Documented by: Albuterol Sulfate (Albuterol) 2.5 mg INHALATION Q6H PRN PRN Reason: Wheezing Last Admin: 05/17/20 17:01 Dose: 2.5 mg Documented by: Albuterol Sulfate (Ventolin) 2 puff INHALATION Q4H.RESPIRATORY PRN PRN Reason: SHORTNESS OF BREATH Last Admin: 05/20/20 09:33 Dose: 2 puff Documented by: Benztropine Mesylate (Cogentin) 1 mg PO BID PRN PRN Reason: Mild Extrapyramidal symptoms Camphor/Menthol/Phenol (Blistex) 1 applic TOPICAL Q1H PRN PRN Reason: DRYNESS Last Admin: 05/17/20 18:31 Dose: 1 applic Documented by: Clonidine HCl (Catapres) 0.1 mg PO TID [facility] Last Admin: 05/20/20 15:44 Dose: 0.1 mg Documented by: Diphenhydramine HCl (Benadryl) 50 mg IM ONCE PRN PRN Reason: Severe Extrapyramidal Symptoms Diphenhydramine HCl (Benadryl) 50 mg IM Q4H PRN PRN Reason: Severe Aggression Divalproex Sodium (Depakote Er) 500 mg PO BEDTIME [facility] Last Admin: 05/19/20 20:23 Dose: 500 mg Documented by: Fluoxetine HCl (Prozac) 40 mg PO DAILY [facility] Haloperidol (Haldol) 5 mg PO Q4H PRN PRN Reason: AGITATION Haloperidol Lactate (Haldol Inj) 5 mg IM Q4H PRN PRN Reason: Severe Aggression Hydroxyzine Pamoate (Vistaril) 50 mg PO Q6H PRN PRN Reason: ANXIETY Loperamide HCl (Imodium Capsule) 2 mg PO Q6H PRN PRN Reason: DIARRHEA Nicotine (Nicoderm 21 Mg Patch) 1 patch TRANSDERMA DAILY PRN PRN Reason: NICOTINE WITHDRAWAL Last Admin: 05/19/20 11:36 Dose: 1 patch Documented by: Nicotine Polacrilex (Nicorette) 2 mg BUCCAL Q2H PRN PRN Reason: NICOTINE WITHDRAWAL Olanzapine (Zyprexa Zydis) 5 mg PO Q4H PRN PRN Reason: Agitation/Psychosis Olanzapine (Zyprexa Zydis) 5 mg PO BEDTIME [facility] Last Admin: 05/19/20 20:24 Dose: 5 mg Documented by: Ondansetron HCl (Zofran) 4 mg PO Q6H PRN PRN Reason: NAUSEA AND VOMITING Trazodone HCl (Desyrel) 50 mg PO BEDTIME PRN PRN Reason: SLEEP Last Admin: 05/18/20 21:15 Dose: 50 mg Documented by: Trimethoprim/Sulfamethoxazole (Bactrim Ds) 1 tab PO BID [facility]; Protocol Stop: 05/31/20 08:59 Last Admin: 05/20/20 17:32 Dose: 1 tab Documented by: Mental Status Exam MSE Comments: Patient is alert and interpersonally engaged. Eye contact is fixed. His gait is shuffling and slow. His mentation is clearer now mood: Remains profoundly sad and dysphoric; affect is flat but not tearful. Appearance: hygiene is fair; no gross neurological deficits. Gait is unremarkable; AIMS=0 Speech: Speech is of slow rate and rhythm but easier to understand. There is no dysarthria, aprosody or pressure. Thought processes: Thought processes are idiosyncratic. Judgment is not adequate for safety. Psychotic processes: There is no indication of guarding or paranoia. There is no attention to the internal stimuli. Auditory and visual hallucinations are denied. Judgment: Insight is fair. Problem solving skills are not adequate for safety. Orientation: The patient is oriented to person, place and situation. Memory: Unable to formally test Attention: The patient is alert and interpersonally engaged. Language: Verbalizations are coherent. Fund of knowledge: Fund of knowledge is poor Pt denies suicidal ideation. Psychosis: perception unimpaired except through cognitive distortion; reality testing intact. Vitals/I&O/Wt Last Vital Signs Temp 97.8 F 05/20/20 13:54 Pulse 89 05/20/20 20:41 Resp 18 05/20/20 20:41 BP 117/77 05/20/20 15:44 Pulse Ox 95 05/20/20 20:41 Data NPU : 05/16/20 17:26 05/16/20 17:26 A&P Assessment and plan (1) Bipolar 1 disorder, depressed, moderate: Status: Acute (2) Suicidal ideation: Status: Acute Involuntary Hold Information 96 Hour Hold: 96 Hour Involuntary Admission: No Attestations NPU Medical Necessity Statement*: I anticipate 5-7 midnights additional hospitalization. Time Spent in Patient Care: Greater than 35 minutes (>than 50% of time spent in counselling and/or direct pt care on unit) . Coding Level of Care Code Acute Excavation Laborer for Mayela Brooks Diagnoses Bipolar 1 disorder, depressed, moderate F31.32 Suicidal ideation R45.851
[2020-05-20] MEDS: divalproex ER 500 mg Tablet (24H) PO (22:04)
[2020-05-20] MEDS: OLANZapine 5 mg ODT PO (22:04)
[2020-05-21 06:00] VITALS: BP 123/86; PULSE 62; RESP 20; TEMP 36.7; O2SAT 96
[2020-05-21 09:13] VITALS: BP 123/86
[2020-05-21] MEDS: cloNIDine 0.1 mg Tablet PO ×3 (09:13→21:59)
[2020-05-21] MEDS: sulfamethoxazole-trimeth DS 160-800 mg Tablet 1 TAB PO ×2 (09:14→18:15)
[2020-05-21] MEDS: fluoxetine 20 mg Capsule 40 MG PO (09:14)
[2020-05-21] MEDS: ondansetron 4 MG Tablet PO (13:01)
--- NOTE | 2020-05-21 13:06 | PM.NPN ---
Subjective NPU Medications: Reviewed: Yes Medication Review Details: Current Medications Acetaminophen (Tylenol) 650 mg PO Q4H PRN PRN Reason: MILD PAIN Last Admin: 05/18/20 11:24 Dose: 650 mg Documented by: Albuterol Sulfate (Albuterol) 2.5 mg INHALATION Q6H PRN PRN Reason: Wheezing Last Admin: 05/17/20 17:01 Dose: 2.5 mg Documented by: Albuterol Sulfate (Ventolin) 2 puff INHALATION Q4H.RESPIRATORY PRN PRN Reason: SHORTNESS OF BREATH Last Admin: 05/20/20 09:33 Dose: 2 puff Documented by: Benztropine Mesylate (Cogentin) 1 mg PO BID PRN PRN Reason: Mild Extrapyramidal symptoms Camphor/Menthol/Phenol (Blistex) 1 applic TOPICAL Q1H PRN PRN Reason: DRYNESS Last Admin: 05/17/20 18:31 Dose: 1 applic Documented by: Clonidine HCl (Catapres) 0.1 mg PO TID [facility] Last Admin: 05/21/20 09:13 Dose: 0.1 mg Documented by: Diphenhydramine HCl (Benadryl) 50 mg IM ONCE PRN PRN Reason: Severe Extrapyramidal Symptoms Diphenhydramine HCl (Benadryl) 50 mg IM Q4H PRN PRN Reason: Severe Aggression Divalproex Sodium (Depakote Er) 500 mg PO BEDTIME [facility] Last Admin: 05/20/20 22:04 Dose: 500 mg Documented by: Fluoxetine HCl (Prozac) 40 mg PO DAILY [facility] Last Admin: 05/21/20 09:14 Dose: 40 mg Documented by: Haloperidol (Haldol) 5 mg PO Q4H PRN PRN Reason: AGITATION Haloperidol Lactate (Haldol Inj) 5 mg IM Q4H PRN PRN Reason: Severe Aggression Hydroxyzine Pamoate (Vistaril) 50 mg PO Q6H PRN PRN Reason: ANXIETY Loperamide HCl (Imodium Capsule) 2 mg PO Q6H PRN PRN Reason: DIARRHEA Nicotine (Nicoderm 21 Mg Patch) 1 patch TRANSDERMA DAILY PRN PRN Reason: NICOTINE WITHDRAWAL Last Admin: 05/19/20 11:36 Dose: 1 patch Documented by: Nicotine Polacrilex (Nicorette) 2 mg BUCCAL Q2H PRN PRN Reason: NICOTINE WITHDRAWAL Olanzapine (Zyprexa Zydis) 5 mg PO Q4H PRN PRN Reason: Agitation/Psychosis Olanzapine (Zyprexa Zydis) 5 mg PO BEDTIME [facility] Last Admin: 05/20/20 22:04 Dose: 5 mg Documented by: Ondansetron HCl (Zofran) 4 mg PO Q6H PRN PRN Reason: NAUSEA AND VOMITING Last Admin: 05/21/20 13:01 Dose: 4 mg Documented by: Trazodone HCl (Desyrel) 50 mg PO BEDTIME PRN PRN Reason: SLEEP Last Admin: 05/18/20 21:15 Dose: 50 mg Documented by: Trimethoprim/Sulfamethoxazole (Bactrim Ds) 1 tab PO BID [facility]; Protocol Stop: 05/31/20 08:59 Last Admin: 05/21/20 09:14 Dose: 1 tab Documented by: Mental Status Exam MSE Comments: Patient is alert and interpersonally engaged. Eye contact is fixed. His gait is shuffling and slow. His mentation is clearer now mood: Remains profoundly sad and dysphoric; affect is flat but not tearful. Appearance: hygiene is fair; no gross neurological deficits. Gait is unremarkable; AIMS=0 Speech: Speech is of slow rate and rhythm but easier to understand. There is no dysarthria, aprosody or pressure. Thought processes: Thought processes are idiosyncratic. Judgment is not adequate for safety. Psychotic processes: There is no indication of guarding or paranoia. There is no attention to the internal stimuli. Auditory and visual hallucinations are denied. Judgment: Insight is fair. Problem solving skills are not adequate for safety. Orientation: The patient is oriented to person, place and situation. Memory: Unable to formally test Attention: The patient is alert and interpersonally engaged. Language: Verbalizations are coherent. Fund of knowledge: Fund of knowledge is poor Pt denies suicidal ideation. Psychosis: perception unimpaired except through cognitive distortion; reality testing intact. Vitals/I&O/Wt Last Vital Signs Temp 98.0 F 05/21/20 06:00 Pulse 62 05/21/20 06:00 Resp 20 H 05/21/20 06:00 BP 123/86 05/21/20 09:13 Pulse Ox 96 05/21/20 06:00 Data NPU : 05/16/20 17:26 05/16/20 17:26 A&P Assessment and plan (1) Bipolar 1 disorder, depressed, moderate: Status: Acute Involuntary Hold Information 96 Hour Hold: 96 Hour Involuntary Admission: No Attestations NPU Medical Necessity Statement*: I anticipate 3-5 midnights additional hospitalization. Coding Level of Care Code Acute Perinatal Breastfeeding Assistant for Jason Cecilia Diagnoses Bipolar 1 disorder, depressed, moderate F31.32
--- NOTE | 2020-05-21 13:40 | PC.SOCIAL ---
important message for medicare updated
[2020-05-21 14:00] VITALS: BP 134/88; PULSE 83; RESP 18; TEMP 36.5; O2SAT 95
[2020-05-21 14:52] VITALS: BP 123/86
[2020-05-21] MEDS: calcium carbonate 500 mg Chew Tablet PO (14:55)
[2020-05-21 20:07] VITALS: PULSE 80; RESP 16; O2SAT 95
[2020-05-21 20:10] VITALS: BP 122/71; PULSE 91; RESP 17; TEMP 36.9; O2SAT 94
[2020-05-21] MEDS: hyDROXYzine 25 mg Capsule 50 MG PO (21:56)
[2020-05-21] MEDS: divalproex ER 500 mg Tablet (24H) PO (21:57)
[2020-05-21] MEDS: OLANZapine 5 mg ODT PO (21:57)
[2020-05-22 06:00] VITALS: BP 168/93; PULSE 74; RESP 15; TEMP 36.4; O2SAT 96
[2020-05-22] MEDS: cloNIDine 0.1 mg Tablet PO ×3 (08:24→20:39)
[2020-05-22] MEDS: fluoxetine 20 mg Capsule 40 MG PO (08:24)
[2020-05-22] MEDS: sulfamethoxazole-trimeth DS 160-800 mg Tablet 1 TAB PO ×2 (08:24→16:04)
--- NOTE | 2020-05-22 13:07 | PC.RESP ---
Pulmonary rehab information to patient.
--- NOTE | 2020-05-22 13:21 | PM.NPN ---
Subjective NPU Subjective: Interval history: Rajeev presented today denying any significant changes or headway in the search for an opportunity for RCF. There are some opportunities that we have in exploring we are just awaiting an answer. He reports that he is doing well on the Prozac and Depakote. He reports that he feels that he eating okay and sleeping fine. Not very talkative. Mental Status Exam MSE Comments: This is a well-nourished well-developed white male with hospital scrubs on, limited grooming and eye contact. No abnormal movements except for his psychomotor retardation and somewhat shuffling gait. Cooperative with exam in no acute distress. Speech was limited and decreased rate and volume. Mood described as a little down, affect flat. Thought process organized. Thought content: Patient denied any suicidal or homicidal ideation, there were no delusions reported or noted, he denied any auditory or visual hallucinations. Attention and concentration were limited and memory was unreliable but none were formally tested. He is alert and oriented ?3. Insight and judgment are limited. Vitals/I&O/Wt Last Vital Signs Temp 97.7 F 05/22/20 22:00 Pulse 70 05/22/20 22:00 Resp 17 05/22/20 22:00 BP 114/79 05/22/20 22:00 Pulse Ox 95 05/22/20 22:00 Data NPU : 05/16/20 17:26 05/16/20 17:26 A&P Assessment and plan (1) Bipolar 1 disorder, depressed, moderate: Status: Acute (2) Suicidal ideation: Status: Acute (3) Substance abuse: Status: Acute Additional A&P Information This is a 54-year-old white male with bipolar disorder and substance abuse and recent lethality that is resolving who is trying to find placement. 1. Continue current medication. 2. Continue every 15 minute checks for safety. 3. Encourage individual, group and milieu therapy. 4. Encouraged continued sober living treatment after discharge. 5. We'll continue to work with treatment team to find appropriate and safe placement. Involuntary Hold Information 96 Hour Hold: 96 Hour Involuntary Admission: No Attestations NPU Medical Necessity Statement*: Inpatient hospitalization is medically necessary and the clinically appropriate intervention at this time. We will monitor medications and make changes as indicated. Likely length of stay 2-4 days. We will like to find placement and send him directly there but at the very least would like to find placement prior to discharge. Coding Level of Care Code Acute Sexual Assault Nurse for g Fwd Diagnoses Bipolar 1 disorder, depressed, moderate F31.32 Suicidal ideation R45.851 Substance abuse F19.10
[2020-05-22 14:00] VITALS: BP 122/82; PULSE 81; RESP 18; TEMP 36.5; O2SAT 97
[2020-05-22] MEDS: nicotine 2 mg Gum BUCCAL (17:14)
[2020-05-22] MEDS: divalproex ER 500 mg Tablet (24H) PO (20:38)
[2020-05-22 20:39] VITALS: BP 122/82
[2020-05-22] MEDS: OLANZapine 5 mg ODT PO (20:39)
--- NOTE | 2020-05-22 20:45 | PC.NURSE ---
Patient stated that it is easier for him to remember medication if given BID
[2020-05-22] MEDS: trazodone 50 mg Tablet PO (21:12)
[2020-05-22] MEDS: hyDROXYzine 25 mg Capsule 50 MG PO (21:12)
--- NOTE | 2020-05-22 21:13 | PC.NURSE ---
pRNS GIVEN TRAZODONE 50MG PO GIVEN FOR SLEEP AND VISTERIL 50MG PO FOR ANXIETY
[2020-05-22 22:00] VITALS: BP 114/79; PULSE 70; RESP 17; TEMP 36.5; O2SAT 95
--- NOTE | 2020-05-23 02:24 | PC.NURSE ---
Patient requests to be woke up at 0615 each morning that he is here because he says it is the only time during the day that he can speak to his . He kindly asks the nurses to ensure that he does not miss this time to speak to her.
[2020-05-23 06:00] VITALS: BP 130/88; PULSE 66; RESP 13; TEMP 36.4; O2SAT 98
[2020-05-23] MEDS: hyDROXYzine 25 mg Capsule 50 MG PO ×2 (06:33→15:51)
--- NOTE | 2020-05-23 06:33 | PC.NURSE ---
PRN given @06:33 Visteril 50mg PO for anxiety. Will continue to monitor patient.
[2020-05-23] MEDS: nicotine 21 mg Patch 1 PATCH TRANSDERMA (06:54)
[2020-05-23] MEDS: cloNIDine 0.1 mg Tablet PO ×3 (08:04→21:12)
[2020-05-23] MEDS: sulfamethoxazole-trimeth DS 160-800 mg Tablet 1 TAB PO ×2 (08:04→17:01)
[2020-05-23] MEDS: fluoxetine 20 mg Capsule 40 MG PO (08:05)
[2020-05-23 13:24] VITALS: BP 129/82; PULSE 83; RESP 20; TEMP 36.7; O2SAT 96
--- NOTE | 2020-05-23 14:43 | P.PN_ITS ---
Subjective NPU Subjective: Interval history: Rajeev presented today with limited conversation as usual. We were able to talk about the plan is to attempt to get connected and admitted to the [facility] which has not been working thus far but we're still attempting to get him into that location. He reports a desire to go there reporting that he just doesn't do well on his own. He reports he has a place and that he could probably go back therefore. Time that long-term is not a good solution and would probably end up with him back here or worse. He reports eating okay and sleeping fine. Mental Status Exam MSE Comments: This is a well-nourished well-developed white male with hospital scrubs on, limited grooming and eye contact. No abnormal movements except for his psychomotor retardation and somewhat shuffling gait. Cooperative with exam in no acute distress. Speech was limited and decreased rate and volume. Mood described as okay, affect flat. Thought process organized. Thought content: Patient denied any suicidal or homicidal ideation, there were no delusions reported or noted, he denied any auditory or visual hallucinations. Attention and concentration were limited and memory was unreliable but none were formally tested. He is alert and oriented ?3. Insight and judgment are limited. Vitals/I&O/Wt Last Vital Signs Temp 98.1 F 05/23/20 22:00 Pulse 84 05/23/20 22:00 Resp 18 05/23/20 22:00 BP 146/93 05/23/20 22:00 Pulse Ox 94 05/23/20 22:00 Data NPU : 05/16/20 17:26 05/16/20 17:26 A&P Additional A&P Information (1) Bipolar 1 disorder, depressed, moderate: (2) Suicidal ideation: (3) Substance abuse: This is a 54-year-old white male with bipolar disorder and substance abuse and recent lethality that is resolving who is trying to find placement. 1. Continue current medication. 2. Continue every 15 minute checks for safety. 3. Encourage individual, group and milieu therapy. 4. Encouraged continued sober living treatment after discharge. 5. We'll continue to work with treatment team to find appropriate and safe placement. Involuntary Hold Information 96 Hour Hold: 96 Hour Involuntary Admission: No Attestations NPU Medical Necessity Statement*: Inpatient hospitalization is medically necessary and the clinically appropriate intervention at this time. We will monitor medications and make changes as indicated. Likely length of stay 2-4 days. We will like to find placement and send him directly there but at the very least would like to find placement prior to discharge. Coding Level of Care Code Acute Blow Down Operator for Mayela Brooks
--- NOTE | 2020-05-23 15:52 | PC.NURSE ---
PRN Vistaril Patient c/o anxiety. States he's having trouble dealing with family issues. 50mg PO Vistaril given. Will monitor for effectiveness.
[2020-05-23] MEDS: albuterol 8 gm MDI 2 PUFF INHALATION (19:54)
[2020-05-23 19:55] VITALS: PULSE 78; RESP 16; O2SAT 97
[2020-05-23 19:59] VITALS: PULSE 80; RESP 16; O2SAT 97
[2020-05-23 21:12] VITALS: BP 146/93
[2020-05-23] MEDS: divalproex ER 500 mg Tablet (24H) PO (21:12)
[2020-05-23] MEDS: OLANZapine 5 mg ODT PO (21:12)
[2020-05-23] MEDS: trazodone 50 mg Tablet PO (21:12)
--- NOTE | 2020-05-23 21:14 | PC.NURSE ---
Addendum entered by Bhanu Light LPN 05/24/20 01:14: LATE ENTRY TRAZODONE FOLLOW UP 05/23/20 @ 2766 PT RESTING IN BED WITH EYES CLOSED. RESPIRATIONS EVEN AND UNLABORED. WILL CONTINUE TO MONITOR. Original Note: PRN TRAZODONE PT REQUESTING SLEEP AID. ADMINISTERED TRAZODONE 50 MG PO. WILL MONITOR FOR MEDICATION EFFECTIVENESS.
[2020-05-23 22:00] VITALS: BP 146/93; PULSE 84; RESP 18; TEMP 36.7; O2SAT 94
[2020-05-24 06:00] VITALS: BP 116/75; PULSE 65; RESP 16; TEMP 36.5; O2SAT 96
[2020-05-24] MEDS: sulfamethoxazole-trimeth DS 160-800 mg Tablet 1 TAB PO ×2 (08:08→17:02)
[2020-05-24] MEDS: fluoxetine 20 mg Capsule 40 MG PO (08:08)
[2020-05-24] MEDS: cloNIDine 0.1 mg Tablet PO ×3 (08:08→20:46)
--- NOTE | 2020-05-24 12:59 | P.PN_ITS ---
Subjective NPU Subjective: Interval history: Rajeev presents today starting to get and see about discharge. He was conceptualized in how he could possibly get a Medicaid ride and go back to his place of residence. He continued to report that he would not be able to function there for long but may be we can continue working on getting him placed. We discussed his concern of whether or not he was on a 96 hour hold or voluntary which I said I would review. He expressed a desire to go home as soon as feasible. Mental Status Exam MSE Comments: This is a well-nourished well-developed white male with hospital scrubs on, limited grooming and improving eye contact. No abnormal movements except for his lessening psychomotor retardation and somewhat shuffling gait. Cooperative with exam in no acute distress. Speech was decreased rate and volume. Mood described as I think I'm better, affect flat. Thought process organized. Thought content: Patient denied any suicidal or homicidal ideation, there were no delusions reported or noted, he denied any auditory or visual hallucinations. Attention and concentration were improving and memory was more reliable but none were formally tested. He is alert and oriented ?3. Insight and judgment are limited, but improving. Vitals/I&O/Wt Last Vital Signs Temp 98.0 F 05/24/20 22:00 Pulse 89 05/24/20 22:00 Resp 16 05/24/20 22:00 BP 105/71 05/24/20 22:00 Pulse Ox 93 05/24/20 22:00 Data NPU : 05/16/20 17:26 05/16/20 17:26 A&P Additional A&P Information (1) Bipolar 1 disorder, depressed, moderate: (2) Suicidal ideation: (3) Substance abuse: This is a 54-year-old white male with bipolar disorder and substance abuse and recent lethality that is resolving who is trying to find placement. 1. Continue current medication. 2. Continue every 15 minute checks for safety. 3. Encourage individual, group and milieu therapy. 4. Encouraged continued sober living treatment after discharge. 5. We'll continue to work with treatment team to find appropriate and safe placement. Involuntary Hold Information 96 Hour Hold: 96 Hour Involuntary Admission: No Attestations NPU Medical Necessity Statement*: Inpatient hospitalization is medically necessary and the clinically appropriate intervention at this time. We will monitor medications and make changes as indicated. Likely length of stay 1-3 days. We will like to find placement and send him directly there but at the very least would like to find placement prior to discharge. Coding Level of Care Code Acute Community Mental Health Worker for Mayela Brooks
[2020-05-24 14:00] VITALS: BP 121/84; PULSE 82; RESP 18; TEMP 36.4
[2020-05-24] MEDS: divalproex ER 500 mg Tablet (24H) PO (20:45)
[2020-05-24 20:46] VITALS: BP 121/84
[2020-05-24] MEDS: trazodone 50 mg Tablet PO (20:46)
[2020-05-24] MEDS: OLANZapine 5 mg ODT PO (20:46)
[2020-05-24 22:00] VITALS: BP 105/71; PULSE 89; RESP 16; TEMP 36.7; O2SAT 93
--- NOTE | 2020-05-24 23:02 | PC.NURSE ---
nicotine patch removed
[2020-05-25 06:00] VITALS: BP 145/91; PULSE 66; RESP 17; TEMP 36.6; O2SAT 95
[2020-05-25] MEDS: cloNIDine 0.1 mg Tablet PO ×2 (09:26→14:04)
[2020-05-25] MEDS: sulfamethoxazole-trimeth DS 160-800 mg Tablet 1 TAB PO ×2 (09:26→14:04)
[2020-05-25] MEDS: fluoxetine 20 mg Capsule 40 MG PO (09:26)
--- NOTE | 2020-05-25 10:32 | PM.NDC ---
Diagnoses at Discharge Discharge Diagnosis (1) Bipolar 1 disorder, depressed, moderate: Status: Acute Problem details: Patient will require long-term follow-up. (2) Suicidal ideation: Status: Resolved (3) Substance abuse: Status: Acute Reason for Visit Reason for Visit: SI Brief History: History of Present Illness Rajeev Mariee is a 54 year old male who contacted a criminal justice social worker and [facility] and reported that several days ago, he took an entire bottle of Seroquel in a suicide attempt. He said that he wanted to get back on his medications but was unable to get to the hospital and [facility] without transportation by ambulance. On arrival, ER physician reported 54-year-old male presents to the emergency room with complaints of suicidal ideation is been thinking of harming himself for the last week he is still thinking of harming himself would go home and take a large number of pills for an intentional overdose. He has been admitted to the psychiatric unit in the past. While is interviewing the patient he is noted to have a cough and I asked somebody states a low-grade fever the cough for the last several weeks if not a month. He has not previously been tested for Covid. He has a known history of COPD and is not particularly compliant with his treatment regiment. On interview, he states that he wants to get back on his medication. He is depressed. He is primarily depressed because of his social circumstances. He is not particularly forthcoming though he is able to directly state his needs and interview. He would like to get back on the in Moss and Zoloft. He also wants to explore why he has lost 50 pounds in the past year. However that too may be due to a combination of his methamphetamine abuse and his living circumstances. His urine drug screen is positive again for methamphetamine. Fortunately it is negative for alcohol. Psychiatric history: The patient has 4 prior psychiatric admissions at this hospital. Remarkably, he has been absent since September 2018 when he was here for 7 days. At that time he was started on a combination of Zoloft and in Moss. It is unknown how long he was able to stay on those medications. The patient states that he has been off of them for quite some time because he does not have transportation to the doctor's office. He would not explain where he got the bottle of Seroquel as that was not prescribed for him through this facility. His diagnoses have uniformly been schizoaffective disorder complicated by methamphetamine and alcohol use. He was hospitalized in July 2016 for 5 days and was discharged on a combination of clonazepam, Depakote, Seroquel, and fluoxetine. He remained free of hospitalization for 18 months until January 2018 when his hospitalized for 3 days and again in April 2018 for 3 days. Finally on September 19, 2018 he was hospitalized for 7 days at which time he was started on the combination of Invega and Zoloft. He denies that he has received ongoing care and refuses to state how long it has been since he has taken medication for his mental illness. However he was able to engage a licensed tax consultant to assist him in getting transportation and an affidavit on his chart for potential admission to this unit. Social history: The patient was not forthcoming with regard to his current circumstances. He says he is living alone in a place that he rents. And has running water and a microwave. It does not have a stove or oven. Hospital Course Hospital Course The patient presented to the emergency room with complaints of suicidal ideation and endorsing that he had been thinking about harming himself for the week prior to admission. He reports that if he went home he would take a large number of pills and an intentional overdose. He has been admitted to the neuropsychiatric unit, in the past. He was evaluated for COVID due to an ongoing cough, but that was ruled out. He was admitted to the neuropsychiatric unit for definitive treatment of those issues. On the unit, he had noted that he had actually had a suicide attempt days prior. Additionally, he endorses significant weight loss in the past year. He apparently he had been off of medication for some time. Initially his Invega and Zoloft were restarted. He reported that the Invega made him feel worse, and also noted that the Zoloft had never helped him before, and so he was switched to Zyprexa and Prozac. Additionally, he was noted to have a UTI, and he was started on Bactrim DS. The Prozac was titrated to 40 mg daily. He was started on Depakote as well. He responded well to those medications, but his large issue is being isolated in his current living arrangement and attempts were made to get him connected with the lod[facility]. That was not effective, but referrals were out and pending, at his time of discharge. During the hospitalization, the patient had routine laboratory studies which were within normal limits, except for a few outliers. Additionally, the patient had a general medical evaluation which was within normal limits and revealed no new acute processes. Discharge Summary At the time of discharge the patient denied all lethality, was absent psychosis, and mood and anxiety were well managed. The patient endorsed a plan to avoid all drugs of abuse and to follow-up with outpatient services, as recommended. The patient was evaluated and deemed to be absent credible lethality, and had achieved the maximum benefit from an inpatient hospitalization, and so he was discharged. Involuntary Hold Information 96 Hour Hold: 96 Hour Involuntary Admission: No Mental Status Exam MSE Comments: This is a well-nourished well-developed white male with hospital scrubs on, adequate grooming and improving eye contact. No abnormal movements except for mild psychomotor retardation and somewhat shuffling gait. Cooperative with exam in no acute distress. Speech was more normal rate and decreased volume. Mood described as better, affect flat. Thought process organized. Thought content: Patient denied any suicidal or homicidal ideation, there were no delusions reported or noted, he denied any auditory or visual hallucinations. Attention and concentration were improving and memory was more reliable but none were formally tested. He is alert and oriented ?3. Insight and judgment are improving. Discharge Data Data Completed and Pending: Completed Studies During Hospitalization Category Date Time Status CT kidney stone [id number] Stat Cat Scan 05/16/20 17:56 Completed XR chest 1V ann-marie ble [id number] Stat Exams 05/16/20 16:17 Completed Vitals: Last Vital Signs Temp 97.9 F 05/25/20 06:00 Pulse 66 05/25/20 06:00 Resp 17 05/25/20 06:00 BP 145/91 05/25/20 06:00 Pulse Ox 95 05/25/20 06:00 Discharge Plan Discharge Patient Disposition: Home Condition: Stable Prescriptions: New trazodone 50 mg Tablet 50 mg PO BEDTIME PRN (Reason: Sleep) 30 Days Qty: 30 RF: 1 divalproex 500 mg Tablet Extended Release 24 Hr 500 mg PO BEDTIME 30 Days Qty: 30 RF: 1 fluoxetine 20 mg Capsule 40 mg PO DAILY 30 Days Qty: 60 RF: 1 sulfamethoxazole-trimethoprim 800-160 mg Tablet 1 tab PO BID 6 Days Qty: 12 RF: 0 olanzapine 5 mg Tablet,Disintegrating 5 mg PO BEDTIME 30 Days Qty: 30 RF: 1 Continued albuterol sulfate 90 mcg/actuation Hfa Aerosol Inhaler 2 puff INHALATION 6XD RF: 0 albuterol sulfate 2.5 mg /3 mL (0.083 %) Solution For Nebulization 2.5 mg INHALATION Q6H PRN (Reason: Wheezing) RF: 0 clonidine HCl 0.1 mg Tablet 0.1 mg PO TID 30 Days Qty: 90 RF: 1 Discharge Orders: Discharge Order (Routine); Ordered 05/25/20 Ordered By: Jacobo Lang Referrals: [facility] [Other] (be sure to call as soon as you can in order to get appointment for follow-up. Request outpatient mental health services. ) Discharge Diet: Regular Discharge Activity: Resume usual activity Discharge Date/Time: 05/25/20 16:14 Discharge Attestations NPU Time Spent in Discharge Care*: less than 30 min Specific Discharge Activities: Specific discharge activities: educating patient, discussing with pcp/other providers, discussing with test case developer/social workers/dc planners, documenting/other paperwork and evaluating patient/reviewing data Coding Level of Care Code Acute Welding Equipment Sales Representative for Jasong Fwd Diagnoses Bipolar 1 disorder, depressed, moderate F31.32 Suicidal ideation R45.851 Substance abuse F19.10
[2020-05-25 13:51] VITALS: BP 145/91; PULSE 66; RESP 17; TEMP 36.6; O2SAT 95
[2020-05-25 14:00] VITALS: BP 120/77; PULSE 76; RESP 17; TEMP 36.9; O2SAT 96
[2020-05-25 14:04] VITALS: BP 145/91
== END 2020-05-25 16:14 | disposition home or self-care (01) | DRG 885 ==
LOC: ER 19:49 → NP 19:55
PROVIDERS: Family Medicine; Admitting Provider Psychiatry & Neurology Psychiatry; Visit Provider Psychiatry & Neurology Psychiatry
DX: F31.32 Bipolar disorder, current episode depressed, moderate (principal); R45.851 Suicidal ideations; J44.9 Chronic obstructive pulmonary disease, unspecified; F15.10 Other stimulant abuse, uncomplicated; Z79.51 Long term (current) use of inhaled steroids
CPT/HCPCS: 12345; 36415; 71045; 74176; 80053; 80164; 80306; 80307; 81001; 85025; 87086; 87426; 94640; 99284; J3535; J7611; Q0162